=== PATIENT | female | born 1940 | race Caucasian/White ===

== ENCOUNTER 2022-01-31 21:54 | Outpatient (CLI) | payer MEDICARE, MEDICAID, BC, OTHER, SELFPAY | END 2022-01-31 21:55 | disposition home or self-care (01) | LOC: AMB 02-11 15:13 | PROVIDERS: PCP Family Medicine; Visit Provider Family Medicine | DX: T14.90XA Injury, unspecified, initial encounter (principal); W07.XXXA Fall from chair, initial encounter; Y92.129 Unspecified place in nursing home as the place of occurrence of the external cause | CPT/HCPCS: A0998 ==

== ENCOUNTER 2022-04-22 11:57 | Outpatient (CLI) | payer MEDICARE, OTHER, MEDICAID, SELFPAY | END 2022-04-22 11:58 | disposition home or self-care (01) | LOC: AMB 04-26 10:05 | PROVIDERS: PCP Family Medicine; Visit Provider Emergency Medicine Emergency Medical Services | DX: R53.1 Weakness (principal) | CPT/HCPCS: A0998 ==

== ENCOUNTER 2022-05-19 16:27 | Outpatient (CLI) | payer MEDICARE, OTHER, MEDICAID, SELFPAY | END 2022-05-19 16:28 | disposition home or self-care (01) | LOC: AMB 05-21 00:19 | PROVIDERS: PCP Family Medicine; Visit Provider Family Medicine | DX: R53.1 Weakness (principal) | CPT/HCPCS: A0998 ==

== ENCOUNTER 2022-10-09 08:13 | Outpatient (CLI) | payer MEDICARE, OTHER, MEDICAID, SELFPAY | END 2022-10-09 08:14 | disposition home or self-care (01) | LOC: AMB 10-10 15:08 | PROVIDERS: PCP Family Medicine; Visit Provider Emergency Medicine | DX: R41.82 Altered mental status, unspecified (principal) | CPT/HCPCS: A0425; A0429 ==

== ENCOUNTER 2022-10-09 08:38 | Inpatient (IN) | payer MEDICARE, OTHER, MEDICAID, SELFPAY ==
[2022-10-09] VITALS (60 sets, daily range): BP systolic 120–155; BP diastolic 62–116; PULSE 57–92; RESP 18–22; TEMP 36.3–39.2; O2SAT 82–97; BMI 29.9
--- NOTE | 2022-10-09 08:50 | ED_ITS ---
HPI - Altered Mental Status General Time Seen by Provider: 08:50 Date Seen: 10/09/22 Chief Complaint: Altered Mental Status Stated Complaint: altered mental status Time Seen by Provider: 10/09/22 08:48 History of Present Illness HPI narrative: 81-year-old female brought to the ER today from her care facility at [place] by EMS for altered mental status, fever, hypoxia. Report from EMS is limited. She was apparently found with a cane recheck her this morning and she was confused, almost unresponsive. Per report oxygen saturations were in the 70s on room air but came up to the 90s on nasal cannula. EMS reports stable blood pressure normal blood sugar. No focal deficits. Nonfocal altered mental status and confusion. History is not really obtainable from the patient. She is able to follow simple commands but not really able to answer questions or provide history. History from the patient's daughter and granddaughter was obtained shortly after they arrived. They report that she has a history of cervical cancer, diagnosed about 2 years ago. She opted not to treat it. Although the paperwork from her care facility indicates that she is full code, per family confirm that that is not accurate. She is DNR DNI. She would want to be admitted for oxygen, IV fluids, IV antibiotics but she would not want CPR, ventilator, or BiPAP. No aggressive interventions. As far as her daughter and granddaughter know she was not in her usual state of health yesterday. She is a smoker. She has COPD but really has to use inhalers. She has not been sick lately. As far as they know no recent chest pains, no recent cough, no recent fever. Related Data Home Medications Medication Instructions Recorded Confirmed allopurinol 300 mg tablet 300 mg PO DAILY 09/18/21 10/09/22 amlodipine 10 mg tablet 10 mg PO DAILY 09/18/21 10/09/22 cyanocobalamin (vitamin B-12) 1,000 mcg PO DAILY 09/18/21 10/09/22 1,000 mcg capsule fluoxetine 20 mg capsule 20 mg PO DAILY 09/18/21 10/09/22 metoprolol tartrate 100 mg tablet 100 mg PO BID 09/18/21 10/09/22 omeprazole 40 mg capsule,delayed 40 mg PO BID 09/18/21 10/09/22 release docusate sodium 100 mg capsule 100 mg PO DAILY 10/16/21 10/09/22 gabapentin 300 mg capsule 300 mg PO TID 11/14/21 10/09/22 acetaminophen 500 mg capsule 500 mg PO TID PRN 10/09/22 10/09/22 calcium carb 1,200 mg-mag hydrox 5 - 10 ml PO QID PRN 10/09/22 10/09/22 270 mg-simeth 80 mg/10 mL oral susp (Mylanta Coat-Cool) calcium citrate 315 mg 2 tab PO BID 10/09/22 10/09/22 calcium-vitamin D3 6.25 mcg (250 unit) tablet ibuprofen 400 mg tablet 400 mg PO TID 10/09/22 10/09/22 loperamide 2 mg tablet 4 mg PO DAILY PRN 10/09/22 10/09/22 menthol 0.44 %-zinc oxide 20.6 % 1 applic topical DAILY 10/09/22 10/09/22 topical ointment (CalProtect) oxybutynin chloride 10 mg 10 mg PO DAILY 10/09/22 10/09/22 tablet,extended release 24 hr simethicone 125 mg chewable tablet 125 mg PO TID PRN 10/09/22 10/09/22 (Gas Relief (simethicone)) Allergies Allergy/AdvReac Type Severity Reaction Status Date / Time Sulfa (Sulfonamide Allergy Verified 10/09/22 08:45 Antibiotics) sulfamethoxazole Allergy Verified 10/09/22 08:45 [From Bactrim] trimethoprim [From Bactrim] Allergy Verified 10/09/22 08:45 Review of Systems Narrative: limited Exam Narrative: Exam Narrative: Constitutional: Appears well-developed and well-nourished. She is awake, but somewhat drowsy, but not able to provide history. She is tachypneic. She is on nasal cannula with oxygen saturations at 93% on 3 L. she is able to follow simple commands. She feels warm to the touch. She has a temperature of 102? HENT: Head: Atraumatic. Nose: Nose normal. Mouth/Throat: Oral mucosa is clear but dry.. no trismus. Pharynx partly visualized and is normal save for dry mucous membranes Eyes: Conjunctivae normal. EOM normal. Pupils equal, round, and reactive to light. No scleral icterus. Neck: Normal range of motion. Neck supple. No tracheal deviation present. No JVD. Cardiovascular: Normal rate, regular rhythm. No gallop. No friction rub. No murmur heard. Symmetric radial artery pulses Pulmonary/Chest: Tachypnea. She has bilaterally coarse lung sounds with expiratory rhonchi and wheezes. No respiratory distress. No tenderness. Abdominal: Soft. Bowel sounds normal. No distension. No mass. No tenderness. No rebound. No guarding. Musculoskeletal: RUE: Normal range of motion. No tenderness. No deformity LUE: Normal range of motion. No tenderness. No deformity RLE: Normal range of motion. No edema. No tenderness. No deformity LLE: Normal range of motion. No edema. No tenderness. No deformity Lymph: No cervical adenopathy. Neurological: Alert and oriented to person, but not able to answer further questions.. Generalized weakness but no focal deficit. She is able to lift both arms and both legs off the bed. CN II-VII intact. No facial droop. Tongue protrudes in the midline. No sensory deficit. GCS eye subscore is 4. GCS verbal subscore is 5. GCS motor subscore is 6. Skin: Skin is warm and dry. No rash noted. No pallor. Normal capillary refill. Psychiatric: Limited Const: Vital Signs, click to edit/add: Vital Signs - 24 hr 10/09/22 08:45 10/09/22 09:04 10/09/22 09:05 Temperature 102.6 F H Pulse Rate 83 82 Pulse Rate [Right Pulse Oximeter] 86 Respiratory Rate 18 Blood Pressure 151/70 H Blood Pressure [Ri ght Upper Arm] 155/81 H Pulse Oximetry 82 L 92 92 Oxygen Delivery Me thod Room Air Oxygen Flow Rate 10/09/22 09:15 10/09/22 09:16 10/09/22 09:30 Temperature Pulse Rate 92 78 78 Pulse Rate [Right Pulse Oximeter] Respiratory Rate Blood Pressure 148/65 H Blood Pressure [Ri ght Upper Arm] Pulse Oximetry 93 93 95 Oxygen Delivery Me thod Oxygen Flow Rate 10/09/22 09:32 10/09/22 09:45 10/09/22 09:47 Temperature Pulse Rate 79 79 92 Pulse Rate [Right Pulse Oximeter] Respiratory Rate Blood Pressure 145/67 H 148/116 H Blood Pressure [Ri ght Upper Arm] Pulse Oximetry 95 94 94 Oxygen Delivery Me thod Oxygen Flow Rate 10/09/22 10:00 10/09/22 10:02 10/09/22 10:03 Temperature Pulse Rate 92 81 80 Pulse Rate [Right Pulse Oximeter] Respiratory Rate Blood Pressure 147/70 H Blood Pressure [Ri ght Upper Arm] Pulse Oximetry 97 96 96 Oxygen Delivery Me thod Oxygen Flow Rate 10/09/22 10:15 10/09/22 10:16 10/09/22 10:41 Temperature Pulse Rate 83 84 78 Pulse Rate [Right Pulse Oximeter] Respiratory Rate Blood Pressure 146/71 H Blood Pressure [Ri ght Upper Arm] Pulse Oximetry 95 94 94 Oxygen Delivery Me thod Oxygen Flow Rate 10/09/22 10:45 10/09/22 10:47 10/09/22 11:00 Temperature Pulse Rate 88 78 74 Pulse Rate [Right Pulse Oximeter] Respiratory Rate Blood Pressure 134/66 Blood Pressure [Ri ght Upper Arm] Pulse Oximetry 96 93 93 Oxygen Delivery Me thod Oxygen Flow Rate 10/09/22 11:02 10/09/22 11:03 10/09/22 11:09 Temperature 101.1 F H Pulse Rate 79 76 Pulse Rate [Right Pulse Oximeter] Respiratory Rate Blood Pressure 143/76 H Blood Pressure [Ri ght Upper Arm] Pulse Oximetry 94 94 Oxygen Delivery Me thod Oxygen Flow Rate 10/09/22 11:10 10/09/22 11:15 10/09/22 11:20 Temperature Pulse Rate 76 73 Pulse Rate [Right Pulse Oximeter] Respiratory Rate Blood Pressure Blood Pressure [Ri ght Upper Arm] Pulse Oximetry 93 93 94 Oxygen Delivery Me thod Nasal Cannula Oxygen Flow Rate 2 10/09/22 11:30 10/09/22 11:34 10/09/22 11:35 Temperature Pulse Rate 75 74 79 Pulse Rate [Right Pulse Oximeter] Respiratory Rate Blood Pressure 138/64 Blood Pressure [Ri ght Upper Arm] Pulse Oximetry 93 95 94 Oxygen Delivery Me thod Oxygen Flow Rate 10/09/22 11:45 10/09/22 11:47 10/09/22 12:00 Temperature Pulse Rate 75 77 73 Pulse Rate [Right Pulse Oximeter] Respiratory Rate Blood Pressure 141/81 H Blood Pressure [Ri ght Upper Arm] Pulse Oximetry 95 92 95 Oxygen Delivery Me thod Oxygen Flow Rate 10/09/22 12:02 10/09/22 12:15 10/09/22 12:17 Temperature Pulse Rate 77 70 69 Pulse Rate [Right Pulse Oximeter] Respiratory Rate Blood Pressure 129/86 137/86 Blood Pressure [Ri ght Upper Arm] Pulse Oximetry 96 95 93 Oxygen Delivery Me thod Oxygen Flow Rate 10/09/22 12:30 10/09/22 12:32 10/09/22 12:45 Temperature Pulse Rate 68 67 69 Pulse Rate [Right Pulse Oximeter] Respiratory Rate Blood Pressure 127/73 Blood Pressure [Ri ght Upper Arm] Pulse Oximetry 94 94 97 Oxygen Delivery Me thod Oxygen Flow Rate 10/09/22 12:47 10/09/22 13:00 10/09/22 13:02 Temperature Pulse Rate 66 68 67 Pulse Rate [Right Pulse Oximeter] Respiratory Rate Blood Pressure 130/75 130/65 Blood Pressure [Ri ght Upper Arm] Pulse Oximetry 95 96 95 Oxygen Delivery Me thod Oxygen Flow Rate 10/09/22 13:15 10/09/22 13:17 10/09/22 13:30 Temperature Pulse Rate 61 63 65 Pulse Rate [Right Pulse Oximeter] Respiratory Rate Blood Pressure 140/62 H Blood Pressure [Ri ght Upper Arm] Pulse Oximetry 97 96 96 Oxygen Delivery Me thod Oxygen Flow Rate 10/09/22 13:31 10/09/22 13:32 10/09/22 13:45 Temperature Pulse Rate 66 65 62 Pulse Rate [Right Pulse Oximeter] Respiratory Rate Blood Pressure 128/67 Blood Pressure [Ri ght Upper Arm] Pulse Oximetry 97 97 97 Oxygen Delivery Me thod Oxygen Flow Rate 10/09/22 13:46 10/09/22 13:47 10/09/22 13:52 Temperature 97.8 F Pulse Rate 64 Pulse Rate [Right Pulse Oximeter] Respiratory Rate 18 Blood Pressure 137/72 Blood Pressure [Ri ght Upper Arm] Pulse Oximetry 96 96 Oxygen Delivery Me thod Room Air Oxygen Flow Rate 10/09/22 14:00 10/09/22 14:02 10/09/22 14:03 Temperature Pulse Rate 67 65 64 Pulse Rate [Right Pulse Oximeter] Respiratory Rate Blood Pressure 137/65 Blood Pressure [Ri ght Upper Arm] Pulse Oximetry 93 93 91 Oxygen Delivery Me thod Oxygen Flow Rate Course Vital Signs Vital signs: Initial Vital Signs Temperature 102.6 F H 10/09/22 08:45 Temperature Source Oral 10/09/22 08:45 Pulse Rate 86 10/09/22 08:45 Respiratory Rate 18 10/09/22 08:45 Blood Pressure 155/81 H 10/09/22 08:45 Blood Pressure Mean 105 10/09/22 08:45 Blood Pressure Position Sitting 10/09/22 08:45 Pulse Oximetry 82 L 10/09/22 08:45 Oxygen Delivery Method Room Air 10/09/22 08:45 Vital Signs Temperature 102.6 F H 10/09/22 08:45 Pulse Rate 86 10/09/22 08:45 Respiratory Rate 18 10/09/22 08:45 Blood Pressure 155/81 H 10/09/22 08:45 Pulse Oximetry 82 L 10/09/22 08:45 Oxygen Delivery Method Room Air 10/09/22 08:45 Temperature 98.7 F 10/09/22 14:50 Pulse Rate 90 10/09/22 14:50 Respiratory Rate 22 10/09/22 14:50 Blood Pressure 133/70 10/09/22 14:50 Pulse Oximetry 95 10/09/22 14:50 Oxygen Delivery Method Nasal Cannula 10/09/22 14:50 Oxygen Flow Rate 2 10/09/22 14:50 MDM - Altered Mental Status MDM Narrative Medical decision making narrative: 81-year-old female brought to the ER today by EMS for evaluation of altered mental status, fever, hypoxia. 1. Neuro. She did have altered mental status with drowsiness but no focal deficits to suggest acute ischemic stroke. We did obtain noncontrast head CT which is negative for intracranial hemorrhage by my read and by Radiology. Blood sugar normal. Sodium normal. 2. Pulmonary. She was hypoxic with sats in the 70s on room air at home but is maintaining sats in the low 90s with nasal cannula here in the ER. I confirm that she is DNR DNI and family really would not want aggressive interventions like BiPAP if necessary. They would tolerate oxygen by nasal cannula, and other supportive care such as IV fluids and antibiotics. She has a history of COPD but is not really wheezy or tight on my lung exam. She does have coarse extra rales bilaterally which I think could be related to pneumonia. Blood gas here a respiratory alkalosis, not CO2 retention suggestive of bronchospasm. By my read chest x-ray shows bilateral infiltrates, probably pneumonia, possibly aspiration. She is already started on broad-spectrum antibiotics for sepsis. COVID, influenza, RSV PCR negative. 3. Cardiac. EKG shows rate controlled atrial fibrillation. Unclear if this is new onset or not. Medical will need follow up on the floor. 4. ID. Patient appears to be septic, this is likely causing her altered mental status. She does have a marked leukocytosis, fever. She meets SIRS criteria. She received a 30 mL/kg IV fluid bolus even though she was not hypotensive. Broad-spectrum antibiotics for sepsis were administered shortly after arrival. Blood cultures obtained before antibiotics. Clinically I suspect she has pneumonia. We were able to obtain urinalysis (not by catheterization due to difficult anatomy) and is abnormal showing positive nitrite, 5-10 WBC 10, and does not show any squamous epithelial cells. I believe this is inaccurate sample. 5. Dispo. Patient's family confirms that she is DNR/DNI and would not want ICU are positive pressure ventilation. They would agree with her to be admitted for IV fluids, IV antibiotics, oxygen supplementation by nasal cannula. She will be admitted to the hospitalist service, Dr. Rebollar. Lab Data Labs: Lab Results 10/09/22 10/09/22 10/09/22 Range/Units 09:03 09:40 09:40 WBC 28.07 H* (4.50-11.00) K/uL RBC 3.29 L (4.00-5.20) m/uL Hgb 10.4 L (12.0-16.0) gm/dL Hct 31.4 L (33.0-51.0) % MCV 95 (80-100) fL MCH 32 (26-34) pg MCHC 33 (32-36) gm/dL RDW Coeff of Sidra 14.6 (11.5-15.5) % Plt Count 213 (140-440) K/uL Neut % (Auto) 92.3 H (42.0-72.0) % Lymph % (Auto) 2.6 L (20-44) % [place] % (Auto) 4.6 (0.0-11.0) % Eos % (Auto) 0.0 (0.0-7.0) % Baso % (Auto) 0.1 (0.0-3.0) % Neut # (Auto) 25.90 H (1.7-7.0) K/uL Lymph # (Auto) 0.70 L (0.90-2.90) K/uL [place] # (Auto) 1.30 H (0.00-0.90) K/UL Eos # (Auto) 0.00 (0.00-0.50) K/uL Baso # (Auto) 0.00 (0.00-0.30) K/uL Abs Immat Gran (auto) 0.10 (0.00-0.30) K/uL Imm/Tot Granulo (auto) 0.4 % Diff Slide Review Acceptable Review (Acceptable) VBG pH 7.47 H (7.32-7.43) VBG pCO2 33 L (40-50) mmHG VBG pO2 106.0 H (25-47) mmHG VBG HCO3 24 (21-28) mmol/L Sodium 138 (135-149) mmol/L Potassium 3.3 L (3.6-5.1) mmol/L Chloride 105 (96-114) mmol/L Carbon Dioxide 22 (20-32) mmol/L BUN 16 (7-30) mg/dL Creatinine 0.6 (0.5-1.5) mg/dL Estimated GFR 90 ml/min Glucose 130 H (60-115) mg/dL Lactate 1.9 1.4 (0.5-1.9) mmol/L Calcium 8.9 (8.4-10.6) mg/dL Magnesium 1.8 (1.5-2.6) mg/dL Troponin I 0.02 (0.01-0.04) ng/mL Procalcitonin 1.07 H (<0.50) ng/mL Urine Color (Yellow) Urine Appearance (Clear) Urine pH (5.0-8.5) Ur Specific [place] (1.000-1.030) Urine Protein (Negative) Urine Glucose (UA) (Negative) Urine Ketones (Negative) Urine Blood (Negative) Urine Nitrite (Negative) Urine Bilirubin (Negative) Urine Urobilinogen (0.2-1.0) Ur Leukocyte Esterase (Negative) Urine RBC (0-2) Urine WBC (0-5) Ur Squamous Epith Cells (None-Few) Urine Bacteria (None) SARS-CoV-2 (PCR) Negative SARS-CoV-2 (Negative) Influenza Type A (PCR) Negative PCR FLU A (Negative) Influenza Type B (PCR) Negative PCR FLU B (Negative) RSV (PCR) Negative PCR RSV (Negative) 10/09/22 Range/Units 11:24 WBC (4.50-11.00) K/uL RBC (4.00-5.20) m/uL Hgb (12.0-16.0) gm/dL Hct (33.0-51.0) % MCV (80-100) fL MCH (26-34) pg MCHC (32-36) gm/dL RDW Coeff of Sidra (11.5-15.5) % Plt Count (140-440) K/uL Neut % (Auto) (42.0-72.0) % Lymph % (Auto) (20-44) % [place] % (Auto) (0.0-11.0) % Eos % (Auto) (0.0-7.0) % Baso % (Auto) (0.0-3.0) % Neut # (Auto) (1.7-7.0) K/uL Lymph # (Auto) (0.90-2.90) K/uL [place] # (Auto) (0.00-0.90) K/UL Eos # (Auto) (0.00-0.50) K/uL Baso # (Auto) (0.00-0.30) K/uL Abs Immat Gran (auto) (0.00-0.30) K/uL Imm/Tot Granulo (auto) % Diff Slide Review (Acceptable) VBG pH (7.32-7.43) VBG pCO2 (40-50) mmHG VBG pO2 (25-47) mmHG VBG HCO3 (21-28) mmol/L Sodium (135-149) mmol/L Potassium (3.6-5.1) mmol/L Chloride (96-114) mmol/L Carbon Dioxide (20-32) mmol/L BUN (7-30) mg/dL Creatinine (0.5-1.5) mg/dL Estimated GFR ml/min Glucose (60-115) mg/dL Lactate (0.5-1.9) mmol/L Calcium (8.4-10.6) mg/dL Magnesium (1.5-2.6) mg/dL Troponin I (0.01-0.04) ng/mL Procalcitonin (<0.50) ng/mL Urine Color Red A (Yellow) Urine Appearance Cloudy A (Clear) Urine pH 8.5 (5.0-8.5) Ur Specific [place] 1.020 (1.000-1.030) Urine Protein 3+ A (Negative) Urine Glucose (UA) Negative (Negative) Urine Ketones 1+ A (Negative) Urine Blood 3+ A (Negative) Urine Nitrite Positive A (Negative) Urine Bilirubin 3+ A (Negative) Urine Urobilinogen 2.0 A (0.2-1.0) Ur Leukocyte Esterase 3+ A (Negative) Urine RBC >100 A (0-2) Urine WBC 5-10 A (0-5) Ur Squamous Epith Cells None (None-Few) Urine Bacteria Few A (None) SARS-CoV-2 (PCR) (Negative) Influenza Type A (PCR) (Negative) Influenza Type B (PCR) (Negative) RSV (PCR) (Negative) Imaging Data Chest x-ray: My impression: Bilateral infiltrates, left upper lobe> right upper lobe CT scan - head: Attestation: I have reviewed the pertinent imaging results. My impression: No ICH or edema Radiologist's impression: MPRESSION: 1. No acute intracranial abnormality. 2. Interval worsening of bilateral frontal and temporal lobe atrophy and white matter hypodensities within the cerebral hemispheres and brainstem. 3. Right sphenoid sinus inflammatory disease which may be a combination of chronic and acute sinusitis. 4. Small right mastoid effusions, unchanged. ECG Data Attestation: I personally reviewed and interpreted this ECG as follows: Interpretation: Atrial fibrillation. Rate 80 beats per minute ND na QRS axis left axis deviation. Left bundle-branch block. ST segment/T wave: T-waves consistent with left bundle-branch block. No STEMI by Sgarbossa criteria QTc: 565 Discharge Plan Discharge Clinical Impression: Hypoxia, Sepsis, Altered mental status Patient Disposition: Admitted As Observation
[2022-10-09] MEDS: 0.9 % SODIUM CHLORIDE 1000 ml 1,000 ML 2000 ML IV ×2 (09:35→10:41)
[2022-10-09] MEDS: IPRAT-ALBUT 0.5-2.5 MG/3 ML NEB 1 NEB IH (09:35)
--- NOTE | 2022-10-09 09:47 | CRLHL7_ITS ---
For Patients: As a result of the Cures Act, medical imaging exams and procedure reports are released immediately into your electronic medical record. You may view this report before your referring provider. If you have questions, please contact your health care provider. INDICATION: SOB, fever, altered mental status TECHNIQUE: Chest 1 view COMPARISON: 01/30/2019 FINDINGS: Cardiac silhouette is enlarged. There is tortuosity of the aorta. Severe degenerative changes at both shoulders. Postop changes left axilla. Mild fullness of the pulmonary vascularity. No large pleural effusion. No pneumothorax. Bronchial wall thickening noted in both lower lobes. IMPRESSION: Bilateral bronchiolitis. No dense infiltrate. Mild vascular congestion. Dictated by Ollie Flores MD @ 10/09/2022 11:15:05 AM (Electronically Signed)
--- NOTE | 2022-10-09 09:47 | CRLHL7_ITS ---
For Patients: As a result of the Century Cures Act, medical imaging exams and procedure reports are released immediately into your electronic medical record. You may view this report before your referring provider. If you have questions, please contact your health care provider. INDICATION: Altered mental status. COMPARISON: Head CT 10/21/2011. TECHNIQUE: Noncontrast CT scan of the brain. FINDINGS: Bilateral frontal and temporal lobe atrophy has progressed since the previous exam. Nonspecific hypodensities within the white matter tracts of both cerebral hemispheres and brainstem has also increased since the previous exam. These findings are nonspecific but typically seen with small vessel disease/chronic white matter ischemic changes of aging. Other white-matter disorders are not excluded. No intracranial hemorrhage or mass effect is identified. Mild ventriculomegaly is unchanged. There is partial opacification and a fluid level within the right sphenoid sinus. Sphenoid sinus bone thickening is present consistent with chronic sinus disease. The remaining paranasal sinuses are clear. Left mastoids are clear. Right mastoid effusions are unchanged. No fracture is identified. The orbits and scalp soft tissues are unremarkable. IMPRESSION: 1. No acute intracranial abnormality. 2. Interval worsening of bilateral frontal and temporal lobe atrophy and white matter hypodensities within the cerebral hemispheres and brainstem. 3. Right sphenoid sinus inflammatory disease which may be a combination of chronic and acute sinusitis. 4. Small right mastoid effusions, unchanged. Please note that all CT scans at this facility use dose modulation, iterative reconstruction, and/or weight-based dosing when appropriate to reduce radiation dose to as low as reasonably achievable. Dictated by Glenroy Crowe MD @ 10/09/2022 12:15:35 PM (Electronically Signed)
[2022-10-09] MEDS: PIPERACILLIN/TAZOBACTAM 4.5 GM in 0.9 % SODIUM CHLORIDE Mini-bag 100 ML IVPB (09:48)
[2022-10-09] MEDS: METHYLPREDNISOLONE SOD SUCC 62.5 MG/ML (125) 125 MG IVP (09:48)
[2022-10-09 09:49] LABS: Lactate* 1.9 mmol/L (0.5-1.9)
[2022-10-09 10:24] LABS: HCO3 VBG 24 mmol/L (21-28); PCO2 VBG 33 mmHG (40-50); pH VBG 7.47 (7.32-7.43)
[2022-10-09 10:28] LABS: Basophils Percent Auto 0.1 % (0.0-3.0); Hematocrit 31.4 % (33.0-51.0); Hemoglobin* 10.4 gm/dL (12.0-16.0); Immature Granulocytes Pct Auto 0.4 %; Lymphocytes Percent Auto 2.6 % (20-44); Mean Corpuscular HGB Conc 33 gm/dL (32-36); Mean Corpuscular Hemoglobin 32 pg (26-34); Mean Corpuscular Volume 95 fL (80-100); Monocytes Percent Auto 4.6 % (0.0-11.0); Neutrophils Percent Auto 92.3 % (42.0-72.0); Platelet Count* 213 K/uL (140-440); RDW Coefficient of Variation % 14.6 % (11.5-15.5); Red Blood Count 3.29 m/uL (4.00-5.20)
[2022-10-09 10:36] LABS: Procalcitonin* 1.07 ng/mL (<0.50)
[2022-10-09 10:43] LABS: Chloride* 105 mmol/L (96-114); Potassium* 3.3 mmol/L (3.6-5.1); Sodium* 138 mmol/L (135-149)
[2022-10-09 10:46] LABS: Blood Urea Nitrogen* 16 mg/dL (7-30); Calcium* 8.9 mg/dL (8.4-10.6); Carbon Dioxide* 22 mmol/L (20-32); Creatinine* 0.6 mg/dL (0.5-1.5); Estimated Glomerular Filt Rate 90 ml/min; Glucose* 130 mg/dL (60-115)
[2022-10-09 10:49] LABS: Slide Review Reflex Yes; White Blood Count* 28.07 K/uL (4.50-11.00)
[2022-10-09 10:53] LABS: PCR FLU A Negative PCR FLU A (Negative); PCR FLU B Negative PCR FLU B (Negative); PCR RSV Negative PCR RSV (Negative)
[2022-10-09 10:58] LABS: Troponin I* 0.02 ng/mL (0.01-0.04)
[2022-10-09 11:09] LABS: Lactate* 1.4 mmol/L (0.5-1.9)
[2022-10-09 11:11] LABS: Slide Review Acceptable Review (Acceptable)
[2022-10-09 11:35] LABS: SARS PCR* Negative SARS-CoV-2 (Negative)
[2022-10-09] MEDS: ACETAMINOPHEN 650 MG SUPP PR (11:43)
--- NOTE | 2022-10-09 11:51 | P.IMHP_ITS ---
Hospitalist- H&P: HPI History of Present Illness Date Seen: 10/09/22 Chief complaint: altered mental status Narrative: Estela Beasley is a 81 year old female with past medical history noted below including hx of HTN, GOUT, GERD, Depression, COPD, ?dementia, cervical cancer presenting from [facility] for evaluation of confusion and altered mental status. Staff noted fever and upon arrival to ED the patient was febrile with temp of 101.1F and hypoxic requiring 2 liters supplemental oxygen. CXR showed bilateral bronchiolitis and mild vascular congestion. Notable labs included WBC 28, hgb 10.4, potassium 3.3. VBG pH 7.47, PCO2 33, lactate 1.9, procal 1.07. In the ED an attempt at banks catheter placement was unsuccessful. She was given IVF, solumedrol, duoneb, vanco+zosyn and admitted for further evaluation. cxr IMPRESSION: Bilateral bronchiolitis. No dense infiltrate. Mild vascular congestion. ct head IMPRESSION: 1. No acute intracranial abnormality. 2. Interval worsening of bilateral frontal and temporal lobe atrophy and white matter hypodensities within the cerebral hemispheres and brainstem. 3. Right sphenoid sinus inflammatory disease which may be a combination of chronic and acute sinusitis. 4. Small right mastoid effusions, unchanged. Review of Systems Status of ROS: Reports: unobtainable due to medical condition Meds Home Medications and Allergies Home Medications Medication Instructions Recorded Confirmed Type allopurinol 300 mg tablet 300 mg PO DAILY 09/18/21 10/09/22 History amlodipine 10 mg tablet 10 mg PO DAILY 09/18/21 10/09/22 History cyanocobalamin (vitamin B-12) 1,000 mcg PO DAILY 09/18/21 10/09/22 History 1,000 mcg capsule fluoxetine 20 mg capsule 20 mg PO DAILY 09/18/21 10/09/22 History metoprolol tartrate 100 mg tablet 100 mg PO BID 09/18/21 10/09/22 History omeprazole 40 mg capsule,delayed 40 mg PO BID 09/18/21 10/09/22 History release docusate sodium 100 mg capsule 100 mg PO DAILY 10/16/21 10/09/22 History gabapentin 300 mg capsule 300 mg PO TID 11/14/21 10/09/22 History acetaminophen 500 mg capsule 500 mg PO TID PRN 10/09/22 10/09/22 History calcium carb 1,200 mg-mag hydrox 5 - 10 ml PO QID PRN 10/09/22 10/09/22 History 270 mg-simeth 80 mg/10 mL oral susp (Mylanta Coat-Cool) calcium citrate 315 mg 2 tab PO BID 10/09/22 10/09/22 History calcium-vitamin D3 6.25 mcg (250 unit) tablet ibuprofen 400 mg tablet 400 mg PO TID 10/09/22 10/09/22 History loperamide 2 mg tablet 4 mg PO DAILY PRN 10/09/22 10/09/22 History menthol 0.44 %-zinc oxide 20.6 % 1 applic topical DAILY 10/09/22 10/09/22 History topical ointment (CalProtect) oxybutynin chloride 10 mg 10 mg PO DAILY 10/09/22 10/09/22 History tablet,extended release 24 hr simethicone 125 mg chewable tablet 125 mg PO TID PRN 10/09/22 10/09/22 History (Gas Relief (simethicone)) Allergies Allergy/AdvReac Type Severity Reaction Status Date / Time Sulfa (Sulfonamide Allergy Verified 10/09/22 08:45 Antibiotics) sulfamethoxazole Allergy Verified 10/09/22 08:45 [From Bactrim] trimethoprim [From Bactrim] Allergy Verified 10/09/22 08:45 Exam Narrative: Exam Narrative: Gen: no acute distress HEENT: NCAT EOMI mmm Neck: Supple CV: RRR normal s1 s2 Lungs: CTAB Abd: Soft,nt, nd Neuro: Alert, orientedX1 appears at baseline state; moves extremities Psych: appropriate affect MSK: age appropriate muscle mass Skin; Warm, dry no rash on face Const: Vital Signs, click to edit/add: Vital Signs - 24 hr 10/09/22 08:45 10/09/22 09:04 10/09/22 09:05 Temperature 102.6 F H Pulse Rate 83 82 Pulse Rate [Right Pulse Oximeter] 86 Respiratory Rate 18 Blood Pressure 151/70 H Blood Pressure [Ri ght Upper Arm] 155/81 H Pulse Oximetry 82 L 92 92 Oxygen Delivery Me thod Room Air Oxygen Flow Rate 10/09/22 09:15 10/09/22 09:16 10/09/22 09:30 Temperature Pulse Rate 92 78 78 Pulse Rate [Right Pulse Oximeter] Respiratory Rate Blood Pressure 148/65 H Blood Pressure [Ri ght Upper Arm] Pulse Oximetry 93 93 95 Oxygen Delivery Me thod Oxygen Flow Rate 10/09/22 09:32 10/09/22 09:45 10/09/22 09:47 Temperature Pulse Rate 79 79 92 Pulse Rate [Right Pulse Oximeter] Respiratory Rate Blood Pressure 145/67 H 148/116 H Blood Pressure [Ri ght Upper Arm] Pulse Oximetry 95 94 94 Oxygen Delivery Me thod Oxygen Flow Rate 10/09/22 10:00 10/09/22 10:02 10/09/22 10:03 Temperature Pulse Rate 92 81 80 Pulse Rate [Right Pulse Oximeter] Respiratory Rate Blood Pressure 147/70 H Blood Pressure [Ri ght Upper Arm] Pulse Oximetry 97 96 96 Oxygen Delivery Me thod Oxygen Flow Rate 10/09/22 10:15 10/09/22 10:16 10/09/22 10:41 Temperature Pulse Rate 83 84 78 Pulse Rate [Right Pulse Oximeter] Respiratory Rate Blood Pressure 146/71 H Blood Pressure [Ri ght Upper Arm] Pulse Oximetry 95 94 94 Oxygen Delivery Me thod Oxygen Flow Rate 10/09/22 10:45 10/09/22 10:47 10/09/22 11:00 Temperature Pulse Rate 88 78 74 Pulse Rate [Right Pulse Oximeter] Respiratory Rate Blood Pressure 134/66 Blood Pressure [Ri ght Upper Arm] Pulse Oximetry 96 93 93 Oxygen Delivery Me thod Oxygen Flow Rate 10/09/22 11:02 10/09/22 11:09 10/09/22 11:10 Temperature 101.1 F H Pulse Rate 79 Pulse Rate [Right Pulse Oximeter] Respiratory Rate Blood Pressure 143/76 H Blood Pressure [Ri ght Upper Arm] Pulse Oximetry 94 93 Oxygen Delivery Me thod Nasal Cannula Oxygen Flow Rate 2 Hospitalist - H&P: Result Labs Labs: Short CBC 10/09/22 Range/Units 09:40 WBC 28.07 H* (4.50-11.00) K/uL Hgb 10.4 L (12.0-16.0) gm/dL Hct 31.4 L (33.0-51.0) % Plt Count 213 (140-440) K/uL BMP 10/09/22 09:40 Sodium 138 Potassium 3.3 L Chloride 105 Carbon Dioxide 22 BUN 16 Creatinine 0.6 Glucose 130 H Calcium 8.9 Cardiac Enzymes 10/09/22 Range/Units 09:40 Troponin I 0.02 (0.01-0.04) ng/mL Assessment and Plan Assessment and plan (1) Sepsis: Status: Acute (2) UTI (urinary tract infection): Status: Acute (3) COPD exacerbation: Status: Acute (4) Metabolic encephalopathy: Status: Acute (5) Hypokalemia: Status: Acute Plan Assessment: Estela Beasley is a 81 year old female with past medical history noted below including hx of HTN, GOUT, GERD, Depression, COPD, ?dementia, cervical cancer presenting from [facility] for evaluation of confusion and altered mental status. Staff noted fever and upon arrival to ED the patient was febrile with temp of 101.1F and hypoxic requiring 2 liters supplemental oxygen. CXR showed bilateral bronchiolitis and mild vascular congestion. Notable labs included WBC 28, hgb 10.4, potassium 3.3. VBG pH 7.47, PCO2 33, lactate 1.9, procal 1.07. In the ED an attempt at banks catheter placement was unsuccessful. She was given IVF, solumedrol, duoneb, vanco+zosyn and admitted for further evaluation. 1. Sepsis/UTI/Acute metabolic encephalopathy 2. Suspected mild COPD exacerbation 3. Hypokalemia 4. Hx of HTN 5. Hx of GERD 6. Hx of GOUT 7. Hx of Cervical Cancer 8. Suspected cognitive/memory impairment; possible dementia 9. Hx of Depression Plan -admit to inpatient -f/u Cx -hold antihypertensives -continue zosyn -transition to PO steroids -PPI -potassium replacement -[employer] consult concern of possible swallowing -PT, OT, SW consult Code-DNR/DNI DVT ppx-heparin subq
[2022-10-09 12:30] LABS: Appearance Urine Cloudy (Clear); Bilirubin Urine 3+ (Negative); Blood Urine 3+ (Negative); Color Urine Red (Yellow); Glucose Urine Negative (Negative); Ketones Urine 1+ (Negative); Leukocyte Esterase Urine 3+ (Negative); Nitrite Urine Positive (Negative); Protein Urine 3+ (Negative); pH Urine 8.5 (5.0-8.5)
[2022-10-09 12:45] LABS: Bacteria Urine Few; RBC Urine >100 (0-2)
[2022-10-09] MEDS: POTASSIUM CHLORIDE 10 MEQ/100 ML PIGGYBACK 100 MEQ IVPB ×4 (13:47→19:57)
--- NOTE | 2022-10-09 13:52 | ED.NURSE ---
bed request sent.
--- NOTE | 2022-10-09 14:12 | ED.NURSE ---
pt currently titrated down to room air and O2sats 93-94%
--- NOTE | 2022-10-09 14:13 | ED.NURSE ---
Confused, lethargic, on 2L because on room air pt sats 88-89%. Denies pain and SOB . Coarse congested cough. Attempted to place banks cath with another RN, attempted x2. Could not place. Pt is incontinet at baseline per family. Able to get UA on bedpan. Banks attempt/ insertion did cause slight bleeding, checked pt at 1330 and no blood noted in brief. No Bm throughout shift. Reported given Anusha at 1410 K replacement infusing- next RN aware, monitor IV site. IV site currently is clean dry and infusing
[2022-10-09 15:49] LABS: Magnesium* 1.8 mg/dL (1.5-2.6)
--- NOTE | 2022-10-09 15:55 | PC.NURSE ---
Pt arrived to Med Surg from ED at 1420. Alert and responding to voice commands. Denies pain. O2 sats 95% on 2 LPM. VSS. Family present at bedside. IV patent and running piggyback potassium. Inc of bladder.
[2022-10-09] MEDS: PANTOPRAZOLE SODIUM 40 MG INJ IVP (16:23)
[2022-10-09 17:51] LABS: NT Pro B Type NatriureticPept* 4510 pg/mL
[2022-10-09] MEDS: PIPERACILLIN/TAZOBACTAM 3.375 GM in 0.9 % SODIUM CHLORIDE Mini-bag 100 ML IVPB (18:01)
[2022-10-09] MEDS: 5 % DEXTROSE IN LAC RINGER'S 1,000 ML 75 ML IV (18:30)
[2022-10-09] MEDS: LACTATED RINGERS 1000 ML 1,000 ML 75 ML IV (23:58)
[2022-10-10] MEDS: PIPERACILLIN/TAZOBACTAM 3.375 GM in 0.9 % SODIUM CHLORIDE Mini-bag 100 ML IVPB ×2 (00:01→06:21)
[2022-10-10 03:13] VITALS: BP 135/80; PULSE 65; RESP 20; TEMP 37.1; O2SAT 91
--- NOTE | 2022-10-10 05:30 | PC.NURSE ---
[id number]: Patient pleasant and cooperative with cares. Patient weaned to RA around 0000 and sats remain 88-92%. A2/pivot to BSC. Denies pain. Afebrile. Incontinent of urine. Frequent T&R. NPO.
[2022-10-10 06:40] LABS: Hemoglobin* 8.9 gm/dL (12.0-16.0); Immature Granulocytes Pct Auto 0.4 %; Lymphocytes Percent Auto 5.2 % (20-44); Mean Corpuscular HGB Conc 33 gm/dL (32-36); Mean Corpuscular Hemoglobin 32 pg (26-34); Mean Corpuscular Volume 96 fL (80-100); Monocytes Percent Auto 3.8 % (0.0-11.0); Neutrophils Percent Auto 90.6 % (42.0-72.0); Platelet Count* 229 K/uL (140-440); Red Blood Count 2.82 m/uL (4.00-5.20)
[2022-10-10 06:59] LABS: Slide Review Reflex No; White Blood Count* 26.25 K/uL (4.50-11.00)
[2022-10-10 07:00] VITALS: BP 146/79; PULSE 74; RESP 20; TEMP 37.3; O2SAT 93
[2022-10-10 07:01] LABS: Chloride* 109 mmol/L (96-114); Potassium* 4.1 mmol/L (3.6-5.1); Sodium* 141 mmol/L (135-149)
[2022-10-10 07:04] LABS: Blood Urea Nitrogen* 18 mg/dL (7-30); Carbon Dioxide* 23 mmol/L (20-32); Creatinine* 0.6 mg/dL (0.5-1.5); Est. Creatinine Clearance* 31.69; Estimated Glomerular Filt Rate 90 ml/min; Glucose* 118 mg/dL (60-115)
[2022-10-10 07:05] LABS: Calcium* 9.1 mg/dL (8.4-10.6)
--- NOTE | 2022-10-10 09:11 | CRLHL7_ITS ---
For Patients: As a result of the Cures Act, medical imaging exams and procedure reports are released immediately into your electronic medical record. You may view this report before your referring provider. If you have questions, please contact your health care provider. INDICATION: Shortness of breath TECHNIQUE: Chest 1 view COMPARISON: 10/09/2022 FINDINGS: Cardiac silhouette is enlarged. There is tortuosity of the aorta. Severe degenerative changes of both shoulders. Reticular densities are present bilaterally. No air bronchograms. No pneumothorax. IMPRESSION: Similar findings compared to the prior study with vascular congestion and bronchiolitis. No dense infiltrate or effusion. Dictated by Ollie Flores MD @ 10/10/2022 9:53:29 AM (Electronically Signed)
[2022-10-10] MEDS: SODIUM CHLORIDE 0.9 % (FLUSH) 10 ML SYRINGE 5 ML IVF ×4 (09:13→21:45)
[2022-10-10] MEDS: LORazepam 2 MG/ML inj 0.5 MG IVP ×2 (09:13→09:28)
[2022-10-10 09:30] LABS: HCO3 VBG 18 mmol/L (21-28); PCO2 VBG 54 mmHG (40-50); PO2 VBG 29.3 mmHG (25-47)
[2022-10-10 09:40] LABS: pH VBG 7.139 (7.32-7.43)
[2022-10-10] MEDS: FUROSEMIDE 10 MG/ML inj 40 MG IVP (09:40)
--- NOTE | 2022-10-10 10:11 | P.IMPN_ITS ---
Progress Note: A&P Assessment and plan (1) Need for comfort care: Problem details: transitioned to comfort care morning 10/10 following acute hypoxic/hypercapnic respiratory failure Status: Acute (2) Acute respiratory failure with hypoxia and hypercapnia: Status: Acute (3) Sepsis: Status: Acute (4) Bacteremia: Problem details: GNR Status: Acute (5) UTI (urinary tract infection): Status: Acute (6) Metabolic encephalopathy: Status: Acute Plan Assessment: Estela Beasley is a 81 year old female with past medical history noted below including hx of HTN, GOUT, GERD, Depression, COPD, ?dementia, cervical cancer presenting from [facility] for evaluation of confusion and altered mental status. Staff noted fever and upon arrival to ED the patient was febrile with temp of 101.1F and hypoxic requiring 2 liters supplemental oxygen. CXR showed bilateral bronchiolitis and mild vascular congestion. Notable labs included WBC 28, hgb 10.4, potassium 3.3. VBG pH 7.47, PCO2 33, lactate 1.9, procal 1.07. In the ED an attempt at banks catheter placement was unsuccessful. She was given IVF, solumedrol, duoneb, vanco+zosyn and admitted for further evaluation. 1. Sepsis/UTI/GNR Bacteremia Acute metabolic encephalopathy 2. Acute hypoxic/hypercapnic respiratory failure 3. Hypokalemia 4. Hx of HTN 5. Hx of GERD 6. Hx of GOUT 7. Hx of Cervical Cancer 8. Suspected cognitive/memory impairment; possible dementia 9. Hx of Depression Plan -transitioned to comfort care morning 10/10 after resp failure requiring BIPAP per family member wishes -comfort care orders placed -IVF and antibiotics discontinued -lasix given for comfort -SW consult Code-Comfort care Family communication-discussion with several family members including patient's daughter POA Subjective Date Seen: 10/10/22 Interval history: patient in respiratory failure this morning asked for stat assessment when I arrived patient on BIPAP and using accessory muscle breathing CXR, VBG, procal ordered cxr IMPRESSION: Similar findings compared to the prior study with vascular congestion and bronchiolitis. No dense infiltrate or effusion. vbg pH 7.1 and PCO2 54 given 40 mg IV lasix Family elected to transition to comfort care Exam Narrative: Exam Narrative: Gen: distressed on bipap HEENT: NCAT EOMI mmm CV: tachycardic normal s1 s2 Lungs: Coarse breath sounds Abd: Soft,nt, nd Neuro: Alert, agitated MSK:decreased muscle mass Skin; Warm, dry no rash on face Const: Vital Signs, click to edit/add: Vital Signs - 24 hr 10/09/22 10:15 10/09/22 10:16 10/09/22 10:41 Temperature Pulse Rate 83 84 78 Pulse Rate [Pulse Oximeter] Respiratory Rate Blood Pressure 146/71 H Blood Pressure [Ri ght Arm] Pulse Oximetry 95 94 94 Oxygen Delivery Me thod Oxygen Flow Rate Fraction of Inspir ed Oxygen 10/09/22 10:45 10/09/22 10:47 10/09/22 11:00 Temperature Pulse Rate 88 78 74 Pulse Rate [Pulse Oximeter] Respiratory Rate Blood Pressure 134/66 Blood Pressure [Ri ght Arm] Pulse Oximetry 96 93 93 Oxygen Delivery Me thod Oxygen Flow Rate Fraction of Inspir ed Oxygen 10/09/22 11:02 10/09/22 11:03 10/09/22 11:09 Temperature 101.1 F H Pulse Rate 79 76 Pulse Rate [Pulse Oximeter] Respiratory Rate Blood Pressure 143/76 H Blood Pressure [Ri ght Arm] Pulse Oximetry 94 94 Oxygen Delivery Me thod Oxygen Flow Rate Fraction of Inspir ed Oxygen 10/09/22 11:10 10/09/22 11:15 10/09/22 11:20 Temperature Pulse Rate 76 73 Pulse Rate [Pulse Oximeter] Respiratory Rate Blood Pressure Blood Pressure [Ri ght Arm] Pulse Oximetry 93 93 94 Oxygen Delivery Me thod Nasal Cannula Oxygen Flow Rate 2 Fraction of Inspir ed Oxygen 10/09/22 11:30 10/09/22 11:34 10/09/22 11:35 Temperature Pulse Rate 75 74 79 Pulse Rate [Pulse Oximeter] Respiratory Rate Blood Pressure 138/64 Blood Pressure [Ri ght Arm] Pulse Oximetry 93 95 94 Oxygen Delivery Me thod Oxygen Flow Rate Fraction of Inspir ed Oxygen 10/09/22 11:45 10/09/22 11:47 10/09/22 12:00 Temperature Pulse Rate 75 77 73 Pulse Rate [Pulse Oximeter] Respiratory Rate Blood Pressure 141/81 H Blood Pressure [Ri ght Arm] Pulse Oximetry 95 92 95 Oxygen Delivery Me thod Oxygen Flow Rate Fraction of Inspir ed Oxygen 10/09/22 12:02 10/09/22 12:15 10/09/22 12:17 Temperature Pulse Rate 77 70 69 Pulse Rate [Pulse Oximeter] Respiratory Rate Blood Pressure 129/86 137/86 Blood Pressure [Ri ght Arm] Pulse Oximetry 96 95 93 Oxygen Delivery Me thod Oxygen Flow Rate Fraction of Inspir ed Oxygen 10/09/22 12:30 10/09/22 12:32 10/09/22 12:45 Temperature Pulse Rate 68 67 69 Pulse Rate [Pulse Oximeter] Respiratory Rate Blood Pressure 127/73 Blood Pressure [Ri ght Arm] Pulse Oximetry 94 94 97 Oxygen Delivery Me thod Oxygen Flow Rate Fraction of Inspir ed Oxygen 10/09/22 12:47 10/09/22 13:00 10/09/22 13:02 Temperature Pulse Rate 66 68 67 Pulse Rate [Pulse Oximeter] Respiratory Rate Blood Pressure 130/75 130/65 Blood Pressure [Ri ght Arm] Pulse Oximetry 95 96 95 Oxygen Delivery Me thod Oxygen Flow Rate Fraction of Inspir ed Oxygen 10/09/22 13:15 10/09/22 13:17 10/09/22 13:30 Temperature Pulse Rate 61 63 65 Pulse Rate [Pulse Oximeter] Respiratory Rate Blood Pressure 140/62 H Blood Pressure [Ri ght Arm] Pulse Oximetry 97 96 96 Oxygen Delivery Me thod Oxygen Flow Rate Fraction of Inspir ed Oxygen 10/09/22 13:31 10/09/22 13:32 10/09/22 13:45 Temperature Pulse Rate 66 65 62 Pulse Rate [Pulse Oximeter] Respiratory Rate Blood Pressure 128/67 Blood Pressure [Ri ght Arm] Pulse Oximetry 97 97 97 Oxygen Delivery Me thod Oxygen Flow Rate Fraction of Inspir ed Oxygen 10/09/22 13:46 10/09/22 13:47 10/09/22 13:52 Temperature 97.8 F Pulse Rate 64 Pulse Rate [Pulse Oximeter] Respiratory Rate 18 Blood Pressure 137/72 Blood Pressure [Ri ght Arm] Pulse Oximetry 96 96 Oxygen Delivery Me thod Room Air Oxygen Flow Rate Fraction of Inspir ed Oxygen 10/09/22 14:00 10/09/22 14:02 10/09/22 14:03 Temperature Pulse Rate 67 65 64 Pulse Rate [Pulse Oximeter] Respiratory Rate Blood Pressure 137/65 Blood Pressure [Ri ght Arm] Pulse Oximetry 93 93 91 Oxygen Delivery Me thod Oxygen Flow Rate Fraction of Inspir ed Oxygen 10/09/22 14:50 10/09/22 15:00 10/09/22 15:00 Temperature 98.7 F Pulse Rate 65 Pulse Rate [Pulse Oximeter] 90 Respiratory Rate 22 Blood Pressure Blood Pressure [Ri ght Arm] 133/70 Pulse Oximetry 95 92 Oxygen Delivery Me thod Nasal Cannula Oxygen Flow Rate 2 Fraction of Inspir ed Oxygen 10/09/22 15:00 10/09/22 16:26 10/09/22 18:47 Temperature 97.4 F L Pulse Rate Pulse Rate [Pulse Oximeter] 64 Respiratory Rate 20 20 20 Blood Pressure Blood Pressure [Ri ght Arm] 132/64 Pulse Oximetry 94 95 92 Oxygen Delivery Me thod Nasal Cannula Nasal Cannula Nasal Cannula Oxygen Flow Rate 0.5 1.0 0.5 Fraction of Inspir ed Oxygen 10/09/22 19:00 10/09/22 22:04 10/09/22 22:20 Temperature 97.9 F 98.5 F Pulse Rate Pulse Rate [Pulse Oximeter] 63 68 Respiratory Rate 20 18 Blood Pressure Blood Pressure [Ri ght Arm] 127/64 120/67 Pulse Oximetry 94 93 93 Oxygen Delivery Me thod Nasal Cannula Nasal Cannula Oxygen Flow Rate 0.5 0.5 Fraction of Inspir ed Oxygen 10/09/22 22:25 10/09/22 22:26 10/09/22 22:26 Temperature Pulse Rate 57 L Pulse Rate [Pulse Oximeter] Respiratory Rate 18 18 Blood Pressure Blood Pressure [Ri ght Arm] Pulse Oximetry 93 Oxygen Delivery Me thod Nasal Cannula Oxygen Flow Rate 0.5 Fraction of Inspir ed Oxygen 10/10/22 03:13 10/10/22 07:00 10/10/22 07:00 Temperature 98.7 F Pulse Rate Pulse Rate [Pulse Oximeter] 65 Respiratory Rate 20 Blood Pressure Blood Pressure [Ri ght Arm] 135/80 Pulse Oximetry 91 93 93 Oxygen Delivery Me thod Room Air Room Air Oxygen Flow Rate Fraction of Inspir ed Oxygen 10/10/22 07:00 10/10/22 09:49 Temperature 99.1 F Pulse Rate Pulse Rate [Pulse Oximeter] 74 Respiratory Rate 20 Blood Pressure Blood Pressure [Ri ght Arm] 146/79 H Pulse Oximetry 93 Oxygen Delivery Me thod Room Air Oxygen Flow Rate Fraction of Inspir ed Oxygen 30 Labs Labs: Laboratory Results - last 24 hr 10/09/22 10/09/22 10/09/22 09:03 09:40 11:24 WBC 28.07 H* RBC 3.29 L Hgb 10.4 L Hct 31.4 L MCV 95 MCH 32 MCHC 33 RDW Coeff of Sidra 14.6 Plt Count 213 Neut % (Auto) 92.3 H Lymph % (Auto) 2.6 L [place] % (Auto) 4.6 Eos % (Auto) 0.0 Baso % (Auto) 0.1 Neut # (Auto) 25.90 H Lymph # (Auto) 0.70 L [place] # (Auto) 1.30 H Eos # (Auto) 0.00 Baso # (Auto) 0.00 Abs Immat Gran (auto) 0.10 Imm/Tot Granulo (auto) 0.4 Diff Slide Review Acceptable Review VBG pH 7.47 H VBG pCO2 33 L VBG pO2 106.0 H VBG HCO3 24 Sodium 138 Potassium 3.3 L Chloride 105 Carbon Dioxide 22 BUN 16 Creatinine 0.6 Estimated Creat Clear Estimated GFR 90 Glucose 130 H Lactate 1.4 Calcium 8.9 Magnesium 1.8 Troponin I 0.02 NT-Pro-B Natriuret Pep 4510 Procalcitonin 1.07 H Urine Color Red A Urine Appearance Cloudy A Urine pH 8.5 Ur Specific [place] 1.020 Urine Protein 3+ A Urine Glucose (UA) Negative Urine Ketones 1+ A Urine Blood 3+ A Urine Nitrite Positive A Urine Bilirubin 3+ A Urine Urobilinogen 2.0 A Ur Leukocyte Esterase 3+ A Urine RBC >100 A Urine WBC 5-10 A Ur Squamous Epith Cells None Urine Bacteria Few A SARS-CoV-2 (PCR) Negative SARS-CoV-2 Influenza Type A (PCR) Negative PCR FLU A Influenza Type B (PCR) Negative PCR FLU B RSV (PCR) Negative PCR RSV Lab Acknowledgement 10/09/22 10/09/22 10/10/22 14:22 16:03 06:13 WBC 26.25 H* RBC 2.82 L Hgb 8.9 L Hct 27.0 L MCV 96 MCH 32 MCHC 33 RDW Coeff of Sidra 15.0 Plt Count 229 Neut % (Auto) 90.6 H Lymph % (Auto) 5.2 L [place] % (Auto) 3.8 Eos % (Auto) 0.0 Baso % (Auto) 0.0 Neut # (Auto) 23.80 H Lymph # (Auto) 1.40 [place] # (Auto) 1.00 H Eos # (Auto) 0.00 Baso # (Auto) 0.00 Abs Immat Gran (auto) 0.10 Imm/Tot Granulo (auto) 0.4 Diff Slide Review VBG pH VBG pCO2 VBG pO2 VBG HCO3 Sodium 141 Potassium 4.1 Chloride 109 Carbon Dioxide 23 BUN 18 Creatinine 0.6 Estimated Creat Clear 31.69 Estimated GFR 90 Glucose 118 H Lactate Calcium 9.1 Magnesium 2.0 Troponin I NT-Pro-B Natriuret Pep Procalcitonin Urine Color Urine Appearance Urine pH Ur Specific [place] Urine Protein Urine Glucose (UA) Urine Ketones Urine Blood Urine Nitrite Urine Bilirubin Urine Urobilinogen Ur Leukocyte Esterase Urine RBC Urine WBC Ur Squamous Epith Cells Urine Bacteria SARS-CoV-2 (PCR) Influenza Type A (PCR) Influenza Type B (PCR) RSV (PCR) Lab Acknowledgement Test Added Test Added 10/10/22 09:28 WBC RBC Hgb Hct MCV MCH MCHC RDW Coeff of Sidra Plt Count Neut % (Auto) Lymph % (Auto) [place] % (Auto) Eos % (Auto) Baso % (Auto) Neut # (Auto) Lymph # (Auto) [place] # (Auto) Eos # (Auto) Baso # (Auto) Abs Immat Gran (auto) Imm/Tot Granulo (auto) Diff Slide Review VBG pH 7.139 L* VBG pCO2 54 H VBG pO2 29.3 VBG HCO3 18 L Sodium Potassium Chloride Carbon Dioxide BUN Creatinine Estimated Creat Clear Estimated GFR Glucose Lactate Calcium Magnesium Troponin I NT-Pro-B Natriuret Pep Procalcitonin Urine Color Urine Appearance Urine pH Ur Specific [place] Urine Protein Urine Glucose (UA) Urine Ketones Urine Blood Urine Nitrite Urine Bilirubin Urine Urobilinogen Ur Leukocyte Esterase Urine RBC Urine WBC Ur Squamous Epith Cells Urine Bacteria SARS-CoV-2 (PCR) Influenza Type A (PCR) Influenza Type B (PCR) RSV (PCR) Lab Acknowledgement
[2022-10-10 10:24] LABS: Procalcitonin* 3.11 ng/mL (<0.50)
[2022-10-10] MEDS: MORPHINE 4 MG/ML INJ IVP ×3 (11:19→21:45)
--- NOTE | 2022-10-10 12:36 | REH.OT ---
OT: Orders received, but discontinued due to change in goals of care to comfort cares today.
--- NOTE | 2022-10-10 13:18 | PC.NURSE ---
End of Shift Note: Was in patient's room early this am. She was sitting at the bedside I could her wheeze without listening to her lungs. Did vitals and assessment and patient did not require anything at that moment. Left room only for a short time and was called back to room as patient was having a difficult time breathing. Contact provider and RT she was started on bipap as lungs sounds were wet sounding and given 1 mg ativan as she was very anxious and having a difficult time to breath. Family was present at bedside. Provider did order chest xray and some labs. After getting those results hospitals discuss with patient and family goals of care. It was decided patient would go comfort cares. Patient received a dose of lasix waited a bit and then went in and gave her 4 mg morphine and bipap mask was removed along with continue pulse ox and telemetry monitor. Patient was washed up and made more comfortable and family came back into room and have been at bedside all day. Will continue to monitor and treat as needed.
[2022-10-10] MEDS: IPRAT-ALBUT 0.5-2.5 MG/3 ML NEB 1 NEB IH (15:47)
--- NOTE | 2022-10-10 22:33 | PC.NURSE ---
Shift [id number]- Patient sleeps throughout most of shift, with a few brief periods of relative wakefulness. Family at bedside and supportive. This afternoon, she has audible wheezes, denies SOB. Nebulizer offered, family somewhat dubious, but after discussion, agree to administration. Wheezes subside. Patient denies pain throughout. Also denies SOB. Family requests morphine tonight as patient's breathing appears to be more labored as she falls asleep, which was done. Nebulizer also offered- family declines. Patient is also provided with ice packs for cooling and comfort throughout shift. [place], turning and repositioning, and pillows for offloading performed. She largely does not eat or drink, but does drink some water and agrees to ice cream when offered.
[2022-10-11] MEDS: MORPHINE 4 MG/ML INJ IVP ×11 (00:49→23:43)
[2022-10-11] MEDS: MORPHINE 10 MG/0.5 ML ORAL SOLN PO ×4 (03:09→06:47)
[2022-10-11] MEDS: LORazepam 2 MG/ML inj IVP ×14 (04:12→23:44)
[2022-10-11] MEDS: SODIUM CHLORIDE 0.9 % (FLUSH) 10 ML SYRINGE 5 ML IVF ×2 (06:47→21:50)
[2022-10-11] MEDS: MORPHINE 20 MG/ML **CONCENTRATE** ORAL PO ×11 (08:07→23:44)
--- NOTE | 2022-10-11 10:16 | PM.IMPN1 ---
Progress Note: A&P Assessment and plan (1) Need for comfort care: Problem details: transitioned to comfort care morning 10/10 following acute hypoxic/hypercapnic respiratory failure Status: Acute (2) Bacteremia: Problem details: GNR Status: Acute (3) Acute respiratory failure with hypoxia and hypercapnia: Status: Acute (4) Metabolic encephalopathy: Status: Acute (5) UTI (urinary tract infection): Status: Acute (6) Sepsis: Status: Acute Plan Plan Robinol and Scopalmine patch added Morphine and ativan dose increased family declines lasix continue comfort cares SW consulted anticipated in hospital 24-48 hours Subjective Date Seen: 10/11/22 Interval history: family at bedside patient comfort care lost IV access this morning; re-inserting Exam Narrative: Exam Narrative: Gen: no acute distress; increased oral secretion s Neuro: breathing labored MSK: moves extremities Labs Labs: Laboratory Results - last 24 hr 10/10/22 09:28 Procalcitonin 3.11 H
[2022-10-11] MEDS: GLYCOPYRROLATE 0.2 MG/ML INJ IVP (11:05)
[2022-10-11] MEDS: SCOPOLAMINE 1 MG/3 DAY PATCH 1 PATCH TRANSDERMA (11:05)
--- NOTE | 2022-10-11 14:37 | PC.NURSE ---
End of Shift: Pt on comfort cares, minimal response to physical stimuli during oral care, PeriCare, and repositioning. Some movement in hands. Pt appears comfortable. Right forearm IV infiltrated, new IV placed in left hand, patent and intact. Family at bedside.
[2022-10-11] MEDS: HYOSCYAMINE SULFATE 0.125 MG TAB SUBLINGUAL ×2 (15:54→20:07)
--- NOTE | 2022-10-11 19:30 | PC.NURSE ---
Continues to be non responsive to verbal or physical stimuli. Respirations continue to range from 24-36, receiving PRN morphine for respirations and pain which is moderately effective. Hyoscyamine administered at 1555 for increased secretions, medication effective. Family sitting bedside, daughter requested assistance with removing jewelry, creative writer assisted with removing 2 bands from right ring finger and 2 rings from left ring finger. Repositioned q2-3 hours, no urine output.
[2022-10-12] MEDS: MORPHINE 4 MG/ML INJ IVP ×6 (01:41→12:32)
[2022-10-12] MEDS: LORazepam 2 MG/ML inj IVP ×6 (01:41→12:31)
[2022-10-12] MEDS: HYOSCYAMINE SULFATE 0.125 MG TAB SUBLINGUAL ×2 (01:41→12:29)
[2022-10-12] MEDS: MORPHINE 20 MG/ML **CONCENTRATE** ORAL PO ×9 (01:41→15:45)
--- NOTE | 2022-10-12 06:56 | PC.NURSE ---
On comfort cares pt will clamp mouth down while doing oral cares otherwise non responsive to stimuli. PRN morphine and Ativan given for comfort.?longer periods of apnea noted. Turn and repo upon family request. No urine output. Scopolamine patch in place behind left ear. Hyoscyamine given x2 for increased secretions. Family at bedside throughout night. Pt appears comfortable. ?
[2022-10-12] MEDS: LORazepam 1 MG TABLET SUBLINGUAL ×2 (14:10→15:07)
--- NOTE | 2022-10-12 16:03 | PM.IMPN1 ---
Progress Note: A&P Assessment and plan (1) Need for comfort care: Problem details: transitioned to comfort care morning 10/10 following acute hypoxic/hypercapnic respiratory failure Status: Acute Assessment and Plan: 1. Will not replace IV site. 2. Transition to oral and transmucosal administration of morphine and lorazepam. 3. Hyoscyamine as needed for oral secretions. 4. Reviewed with family. 5. Answered family's questions. 6. Continue with terminal comfort cares. (2) Bacteremia: Problem details: GNR Status: Acute (3) Acute respiratory failure with hypoxia and hypercapnia: Status: Acute (4) Metabolic encephalopathy: Status: Acute (5) UTI (urinary tract infection): Status: Acute (6) Sepsis: Status: Acute Time Spent With Patient Total time spent: 15 minutes Subjective Time Seen by Provider: 10:00 Date Seen: 10/12/22 Interval history: Hospital day 4. Actively dying. Family at bedside. IV site infiltrated once again. Exam Narrative: Exam Narrative: Laying on back in semi recumbent position. Appears comfortable. No acute distress. Tachypneic with respiratory rate of 20. Neck is extended in mouth wide open. Liquid sounds in throat. Skin is warm to touch. Difficult to palpate upper extremity pulses. Const: Documenting provider has reviewed patient's vital signs: yes
--- NOTE | 2022-10-12 16:39 | PM.DN ---
Pronouncement Note Date and Time of Date of : 10/12/22 Time of : 16:10 PCOD Preliminary cause of : Sepsis due to pneumonia Contributing Factors (1) Need for comfort care: Contributing factors: Pneumonia, chronic obstructive pulmonary disease, diastolic heart failure, essential hypertension, former smoker (2) Bacteremia: Contributing factors: Proteus mirabillus from UTI (3) Acute respiratory failure with hypoxia and hypercapnia: Contributing factors: Patient declined oxygenation and ventilation support, requesting comfort focused treatments only with DNR/DNI resuscitation, declining to pursued and additional disease directed diagnostic or interventional efforts. (4) Metabolic encephalopathy: (5) UTI (urinary tract infection): Contributing factors: Proteus mirabillus (6) Sepsis: Summary Additional details: 81-year-old woman presented with fever, hypoxia, sepsis. She made it very clear she wanted comfort focus treatments only, with DNR DNI resuscitation status. Initially consented to empiric treatment with IV antibiotics and low-flow oxygen support, which we instituted. Did not wish to pursue any advanced ventilatory support including CPAP, BiPAP, high-flow oxygen, ventilation and intubation. Shortly after admission she was growing out Gram-negative rods from 2 cultures. Her condition decline within about 24 hours of admission. Again discussed with patient and family their goals of care. Patient again made very clear that she wanted comfort focus treatments only. The paradigm of care was transitioned to reflect her desired goals. She at 4:10 p.m. on 10/12/2022 as anticipated, surrounded by supportive family. Additional Data Confirmation of : no pulse, no respirations, no heart sounds and pupils fixed and dilated Family: at bedside Additional persons at bedside: other (Nurse) Attending/PCP notified?: Yes Attending physician: Cheko Zuniga MD Time Seen by Provider: 16:30 Date Seen: 10/12/22 Was code activated?: No Autopsy requested?: No licensing registration examiner notified?: No Organ bank notified?: Yes Advance directives: Yes
--- NOTE | 2022-10-12 18:40 | PC.NURSE ---
End of Shift: Pt remained on comfort cares throughout shift. Comfort meds administered throughout shift, mouth suctioned, repositioned PRN. Family remained at bedside. Pt at 1610. updated, donor line contacted-pt not eligible for organ or tissue donation. [place] [employer] contacted as families choice.
== END 2022-10-12 19:30 | disposition expired | DRG 871 ==
LOC: ED 11:57 → MEDSURG 14:17
PROVIDERS: Admitting Provider Hospitalist; Emergency Provider Emergency Medicine; PCP Family Medicine; Visit Provider Hospitalist
DX: A41.50 Gram-negative sepsis, unspecified (principal); G93.41 Metabolic encephalopathy; J18.9 Pneumonia, unspecified organism; J96.02 Acute respiratory failure with hypercapnia; J96.01 Acute respiratory failure with hypoxia; N39.0 Urinary tract infection, site not specified; I50.30 Unspecified diastolic (congestive) heart failure; B96.4 Proteus (mirabilis) (morganii) as the cause of diseases classified elsewhere; J44.9 Chronic obstructive pulmonary disease, unspecified; I11.0 Hypertensive heart disease with heart failure; R40.2142 Coma scale, eyes open, spontaneous, at arrival to emergency department; Z87.891 Personal history of nicotine dependence; R40.2252 Coma scale, best verbal response, oriented, at arrival to emergency department; R40.2362 Coma scale, best motor response, obeys commands, at arrival to emergency department; E87.6 Hypokalemia; C53.9 Malignant neoplasm of cervix uteri, unspecified; I48.91 Unspecified atrial fibrillation; F32.A Depression, unspecified; I44.7 Left bundle-branch block, unspecified; M10.9 Gout, unspecified
CPT/HCPCS: 36415; 70450; 71045; 80048; 81001; 82803; 82962; 83605; 83735; 83880; 84145; 84484; 85025; 87040; 87081; 87086; 87186; 87631; 93005; 94640; 94660; 94664; 94761; 99284; 99285; A9270; C9113; J1940; J2060; J2270; J2543; J2930; J3370; J3480; J7030; J7120